=== PATIENT | male | born 1935 | race Caucasian/White ===

== ENCOUNTER 2023-01-02 13:22 | Outpatient (CLI) | payer OTHER | END 2023-01-02 13:32 | disposition home or self-care (01) | LOC: RAD 13:22 | PROVIDERS: ATTEND Orthopaedic Surgery | DX: M25.511 Pain in right shoulder (principal); M25.531 Pain in right wrist ==

== ENCOUNTER 2023-07-26 07:45 | Outpatient (CLI) | payer OTHER ==
[2023-07-26 08:47] LABS: HEMATOCRIT 31.5 % (39.0-48.0); HEMOGLOBIN 10.5 g/dL (13-16.00); MEAN CELL VOLUME 93.6 fL (80.0-100.00); MEAN CORPUSCULAR HEMOGLOBIN 31.3 pg (27.00-32.0); MEAN CORPUSCULAR HGB CONC 33.4 g/dl (32.0-36.0); PLATELET COUNT 177 K/uL (150-450); RED BLOOD COUNT 3.37 M/uL (4.00-6.00); RED CELL DISTRIBUTION WIDTH 13.3 % (11.5-14.5)
[2023-07-26 09:07] LABS: COL EPI 69 SECONDS (82-175)
[2023-07-26 09:23] LABS: INR 1.04; PARTIAL THROMBOPLASTIN TIME 25.9 SECONDS (22.0-34.0); PROTHROMBIN TIME 10.9 SECONDS (9.0-11.5)
[2023-07-26 09:31] LABS: ALBUMIN 3.6 gm/dL (3.4-5.0); BILIRUBIN TOTAL 0.54 mg/dL (0.3-1.2); CREATININE SERUM 2.56 mg/dL (0.70-1.30); GFR 23.83; GLOBULINA 3.9 G/DL (2.4-3.5); POTASSIUM 4.94 mEq/L (3.5-5.1); TOTAL PROTEIN 7.5 gm/dL (6.4-8.2)
[2023-07-26 09:36] LABS: PH,URINE 5.5 (5.0-8.0); URINE APPEARANCE Clear; URINE BILIRRUBIN Negative (NEGATIVE); URINE BLOOD Negative; URINE COLOR Yellow; URINE LEUKOCYTE Negative; URINE NITRATE Negative; URINE PROTEIN 30 (NEGATIVE); URINE UROBILINOGEN 0.2 E.U./dl
[2023-07-26 09:41] LABS: URINE EPITHELIAL CELLS 2.5 uL (0.0-38.8)
[2023-07-26 09:42] LABS: URINE BACTERIA 3.7 uL (0.0-1933); URINE GLUCOSE 500 MG/DL (NEGATIVE); URINE RBC 0.8 uL (0.0-20.8); URINE WBC 0.7 uL (0.0-23.2)
== END 2023-07-26 08:08 | disposition home or self-care (01) ==
LOC: LAB 07:45
PROVIDERS: ATTEND Orthopaedic Surgery
DX: D64.89 Other specified anemias (principal); E88.89 Other specified metabolic disorders; D68.8 Other specified coagulation defects; N39.0 Urinary tract infection, site not specified; Z22.322 Carrier or suspected carrier of Methicillin resistant Staphylococcus aureus; E11.9 Type 2 diabetes mellitus without complications; Z76.89 Persons encountering health services in other specified circumstances; I49.8 Other specified cardiac arrhythmias; I10 Essential (primary) hypertension

== ENCOUNTER 2023-08-06 06:00 | Day surgery (SDC) | payer OTHER ==
[~2023-08-06 06:00] MED LIST: AMLODIPINE-OLM1 EAC2 PO; AVAPRO300 MG PO; HYDRALAZINE HCL25 MG PO; NORVASC10 MG PO; PLAVIX75 MG PO; SIMVASTATIN10 MG PO; ZYLOPRIM100 M1
== END 2023-08-06 13:25 | disposition home or self-care (01) ==
LOC: CIR.AMB 06:00
PROVIDERS: ATTEND Orthopaedic Surgery
DX: M67.431 Ganglion, right wrist (principal); M65.4 Radial styloid tenosynovitis [de Quervain]; Z20.822 Contact with and (suspected) exposure to COVID-19

== ENCOUNTER → 2023-11-09 07:34 | Outpatient (CLI) | payer OTHER | END | disposition home or self-care (01) | LOC: LAB 07:34 | PROVIDERS: ATTEND Orthopaedic Surgery | DX: E55.9 Vitamin D deficiency, unspecified (principal); M85.9 Disorder of bone density and structure, unspecified; E56.1 Deficiency of vitamin K ==